=== PATIENT | male | born 1945 | race African-American/Black ===

== ENCOUNTER 2018-06-17 07:33 | Inpatient (IN) ==
[2018-06-17] MEDS ORDERED: DEXTROSE 50% 25 GM/50 ML SYRINGE IV PRN (09:17)
[2018-06-17] MEDS ORDERED: GLUCAGON 1 MG VIAL IM PRN (09:17)
[2018-06-17] MEDS ORDERED: ASPIRIN CHEW 81 MG TABLET PO ONE (12:00)
[2018-06-17 12:39] LABS: Basophils % 0.3 % (0.0-0.8); Eosinophils # 0.2 10*3/uL (0.0-0.87); Eosinophils % 3.7 % (0.00-10.9); Hemoglobin 12.2 GM/DL (14.0-18.0); Immature Granulocytes % 0.2 %; Immature Granulocytes Absolute 0.01 #; Lymphocytes # 1.4 10*3/uL (1.4-4.0); Lymphocytes % 23.8 % (21.2-54.2); Mean Corpuscular Hemoglobin 28 PG (27-34); Mean Corpuscular Volume 83.3 FL (87-102); Mean Platelet Volume 8.9 FL (9.6-12.0); Monocytes # 0.7 10*3/uL (0.11-0.8); Monocytes % 12.2 % (1.7-12.7); Neutrophils # 3.6 10*3/uL (1.4-7.4); Neutrophils % 59.8 % (38.7-73.9); Platelet Count 191 T/CUMM (130-400); Red Blood Count 4.44 MC/CUMM (3.8-5.5); Red Cell Distribution Width 13.2 % (9.3-17.3)
[2018-06-17 13:04] LABS: Bilirubin,Total 0.4 MG/DL (0.2-1.0); Calcium 9.3 MG/DL (8.5-10.1); Osmolality,Calculated 277.7 MOS/KG (273-304); Total Protein 7.4 G/DL (6.4-8.3)
[2018-06-17] MEDS: CHLORHEXIDINE 4% SOLN 118 ML BOTTLE TOP SCH ×2 (15:28→21:46)
[2018-06-17] MEDS ORDERED: TERAZOSIN 1 MG CAPSULE PO SCH (21:00)
[2018-06-17] MEDS ORDERED: ATORVASTATIN 40 MG TABLET PO SCH (21:00)
[2018-06-17] MEDS: LUBIPROSTONE 24 MCG CAPSULE PO SCH (21:29)
[2018-06-17] MEDS: CHLORHEXIDINE 0.12% ORAL RINSE 60 ML BOTTLE SWISH/SPIT SCH (21:30)
[2018-06-18 04:44] LABS: Allen Test Positive
[2018-06-18 04:45] LABS: ABG HCO3 26.1 MMOL/L (20-26); ABG Oxygen Saturation 96.6 % (95-100); ABG PCO2 41.2 MM HG (35-48); ABG PH 7.419 (7.35-7.45); ABG TCO2 23.4 MMOL/L (23-27)
[2018-06-18] MEDS ORDERED: PAPAVERINE 60 MG/2 ML VIAL ONE (04:50)
[2018-06-18] MEDS ORDERED: VANCOMYCIN 1,000 MG VIAL ONE (04:51)
[2018-06-18] MEDS ORDERED: CEFUROXIME INJ 1,500 MG in SYRINGE 1 EACH IV ONE (05:00)
[2018-06-18] MEDS ORDERED: METOPROLOL SUCCINATE XL 50 MG TABLET PO SCH (05:30)
[2018-06-18] MEDS ORDERED: amLODIPine 10 MG TABLET PO SCH (05:30)
[2018-06-18] MEDS ORDERED: FAMOTIDINE 20 MG TABLET PO ONE (06:00)
[2018-06-18] MEDS ORDERED: DIAZEPAM 5 MG TABLET PO ONE (06:00)
[2018-06-18] MEDS ORDERED: SUFentanil 250 MCG/5 ML AMP ONE (06:08)
[2018-06-18] MEDS ORDERED: MIDAZOLAM 10 MG/2 ML VIAL ONE (06:08)
[2018-06-18] MEDS ORDERED: NITROGLYCERIN DRIP 50 MG/250 ML BOTTLE IV ONE (06:08)
[2018-06-18] MEDS ORDERED: SUFentanil 50 MCG/ML AMP ONE (06:08)
[2018-06-18] MEDS ORDERED: EPINEPHrine 1 MG/ML VIAL ONE (06:09)
[2018-06-18] MEDS ORDERED: ePHEDrine 50 MG/ML AMP ONE (06:09)
[2018-06-18] MEDS ORDERED: CALCIUM CHLORIDE 1,000 MG/10 ML SYRINGE IV ONE (07:26)
[2018-06-18] MEDS ORDERED: NITROPRUSSIDE 50 MG/2 ML VIAL ONE (07:26)
[2018-06-18] MEDS ORDERED: PHENYLEPHRINE DRIP 40 MG/250 ML PREMIX IV ONE (07:26)
[2018-06-18] MEDS ORDERED: POTASSIUM CHLORIDE RIDER 100 ML IV ONE (07:26)
[2018-06-18 07:37] LABS: ABG Base Excess 1.6 MMOL/L (-2.5-2.5); ABG HCO3 25.9 MMOL/L (20-26); ABG Oxygen Saturation 99.9 % (95-100); ABG PCO2 36.4 MM HG (35-48); ABG TCO2 22.4 MMOL/L (23-27); Glucose Heart Surgery 95 MG/DL (74-106); Hematocrit Heart Surgery 36.4 PERCENT (42-52); Hemoglobin Heart Surgery 11.8 G/DL (14.0-18.0); Ionized Calcium Arterial 1.19 MMOL/L (1.21-1.46); PCO2 Patient Temp Arterial 36.4 MMHG; Patient Temperature 37 CELCIUS; Potassium Heart/CVR 3.7 MMOL/L (3.5-5.1); Sodium Heart/CVR 137 MMOL/L (135-145)
[2018-06-18] MEDS ORDERED: ALBUMIN 5% 12.5 GM/250 ML VIAL IV ONE (07:43)
[2018-06-18] MEDS ORDERED: hydroCHLOROthiazide 12.5 MG CAPSULE PO SCH (09:00)
[2018-06-18 09:04] LABS: Apearance,Urine CLEAR (Clear); Bilirubin,Urine Negative (Negative); Blood, Urine Negative (Negative); Glucose,Urine (UA) Negative (Negative); Hyaline Casts,Urine 1 /LPF (0-3); Ketones,Urine Negative (Negative); Mucus,Urine Occasional /LPF (Occasional); Nitrite,Urine Negative (Negative); Protein,Urine Negative; RBC,Urine <1 /HPF (0-4); Urine Color Yellow (Yellow); Urine Specific Gravity 1.018 (1.001-1.035); WBC,Urine 1 /HPF (0-6)
[2018-06-18 09:22] LABS: Hematocrit Heart Surgery 22.7 PERCENT (42-52); Hemoglobin Heart Surgery 7.3 G/DL (14.0-18.0); PH Patient Temp Venous 7.437; PO2 Patient Temp Venous 42.6 MM HG; Potassium Heart/CVR 4.1 MMOL/L (3.5-5.1); VBG Base Excess 1.1 MEQ/L (0-4); VBG HCO3 25.2 MEQ/L (24-28); VBG Oxygen Saturation 83.5 %; VBG PCO2 40.8 MMHG (41-51); VBG PH 7.408; VBG PO2 48.8 MMHG (17-40)
[2018-06-18 09:51] LABS: Hematocrit Heart Surgery 24.1 PERCENT (42-52); Hemoglobin Heart Surgery 7.7 G/DL (14.0-18.0); PCO2 Patient Temp Venous 30.6 MM HG; PH Patient Temp Venous 7.513; PO2 Patient Temp Venous 37.4 MM HG; Potassium Heart/CVR 3.9 MMOL/L (3.5-5.1); VBG Oxygen Saturation 83.2 %; VBG PCO2 35.3 MMHG (41-51); VBG PH 7.468; VBG PO2 45.9 MMHG (17-40)
[2018-06-18 10:23] LABS: Hematocrit Heart Surgery 24.6 PERCENT (42-52); Hemoglobin Heart Surgery 7.9 G/DL (14.0-18.0); PCO2 Patient Temp Venous 33.5 MM HG; PH Patient Temp Venous 7.469; Potassium Heart/CVR 4.7 MMOL/L (3.5-5.1); VBG Base Excess 0.9 MEQ/L (0-4); VBG Oxygen Saturation 75.5 %; VBG PCO2 33.5 MMHG (41-51); VBG PH 7.469
[2018-06-18] MEDS ORDERED: MANNITOL 100 GM/500 ML BAG IV ONE (10:48)
[2018-06-18] MEDS ORDERED: PROTAMINE SULFATE 250 MG/25 ML VIAL IV ONE ×2 (10:49→13:00)
[2018-06-18] MEDS ORDERED: FUROSEMIDE 20 MG/2 ML VIAL ONE (10:49)
[2018-06-18] MEDS ORDERED: SODIUM BICARBONATE 50 MEQ/50 ML SYRINGE IV ONE ×2 (10:49→13:00)
[2018-06-18] MEDS ORDERED: ALBUMIN 25% 25 GM/100 ML VIAL IV ONE (10:49)
[2018-06-18] MEDS ORDERED: HEPARIN 10,000 UNIT/10 ML VIAL ONE ×2 (10:49→13:00)
[2018-06-18] MEDS ORDERED: MAGNESIUM SULFATE 10 GM/20 ML VIAL IV ONE (10:49)
[2018-06-18] MEDS ORDERED: DEXTROSE 5% KCL 20 MEQ 20 MEQ/1,000 ML BAG IV ONE (10:49)
[2018-06-18] MEDS ORDERED: methylPREDNISolone SOD SUC 1,000 MG/8 ML VIAL ONE (10:49)
[2018-06-18] MEDS ORDERED: PROTAMINE SULFATE 50 MG/5 ML VIAL IV ONE ×4 (10:50→13:49)
[2018-06-18] MEDS ORDERED: POTASSIUM CHLORIDE 20 MEQ/10 ML VIAL ONE ×2 (10:50→13:00)
[2018-06-18 10:59] LABS: ABG Base Excess -0.7 MMOL/L (-2.5-2.5); ABG HCO3 23.8 MMOL/L (20-26); ABG Oxygen Saturation 99.9 % (95-100); ABG PCO2 32.8 MM HG (35-48); ABG TCO2 21.1 MMOL/L (23-27); Glucose Heart Surgery 163 MG/DL (74-106); Hematocrit Heart Surgery 26.1 PERCENT (42-52); Hemoglobin Heart Surgery 8.4 G/DL (14.0-18.0); Ionized Calcium Arterial 1.18 MMOL/L (1.21-1.46); PCO2 Patient Temp Arterial 32.8 MMHG; Patient Temperature 37 CELCIUS; Potassium Heart/CVR 3.9 MMOL/L (3.5-5.1); Sodium Heart/CVR 132 MMOL/L (135-145)
[2018-06-18 11:19] LABS: Hemoglobin Heart Surgery 8.7 G/DL (14.0-18.0); PCO2 Patient Temp Venous 40.9 MM HG; PH Patient Temp Venous 7.359; PO2 Patient Temp Venous 48.8 MM HG; Potassium Heart/CVR 3.3 MMOL/L (3.5-5.1); VBG Base Excess -2.7 MEQ/L (0-4); VBG HCO3 22.5 MEQ/L (24-28); VBG PCO2 40.9 MMHG (41-51); VBG PH 7.359; VBG PO2 48.8 MMHG (17-40)
[2018-06-18] MEDS ORDERED: diphenhydrAMINE 50 MG/1 ML VIAL ONE (11:53)
[2018-06-18] MEDS ORDERED: FAMOTIDINE 20 MG/2 ML VIAL IV ONE (11:54)
[2018-06-18 12:27] LABS: ABG Base Excess 0.3 MMOL/L (-2.5-2.5); ABG HCO3 24.1 MMOL/L (20-26); ABG Oxygen Saturation 98.6 % (95-100); ABG PCO2 35.1 MM HG (35-48); ABG PH 7.454 (7.35-7.45); ABG TCO2 25.1 MMOL/L (23-27); Glucose Heart Surgery 184 MG/DL (74-106); Hemoglobin Heart Surgery 8.9 G/DL (14.0-18.0); Ionized Calcium Arterial 1.12 MMOL/L (1.21-1.46); PCO2 Patient Temp Arterial 35.1 MMHG; PH Patient Temp Arterial 7.454; Patient Temperature 37 CELCIUS; Potassium Heart/CVR 3.5 MMOL/L (3.5-5.1); Sodium Heart/CVR 135 MMOL/L (135-145)
[2018-06-18] MEDS ORDERED: DOBUTamine 500 MG/250 ML PREMIX IV ONE ×2 (13:01→14:01)
[2018-06-18] MEDS ORDERED: MIDAZOLAM 10 MG/2 ML VIAL IV PRN (13:46)
[2018-06-18] MEDS ORDERED: MAGNESIUM SULF RIDER 4 GM in PREMIX 1 EACH IV PRN (13:46)
[2018-06-18] MEDS ORDERED: LACTATED RINGERS 250 ML IV PRN (13:46)
[2018-06-18] MEDS ORDERED: CALCIUM CHLORIDE 1,000 MG/10 ML SYRINGE IV PRN (13:46)
[2018-06-18] MEDS ORDERED: INSULIN REGULAR 100 UNIT/ML IV ONE (13:46)
[2018-06-18] MEDS ORDERED: DEXTROSE 50% 25 GM/50 ML SYRINGE IV PRN ×2 (13:46)
[2018-06-18] MEDS ORDERED: ACETAMINOPHEN 650 MG SUPP RECTAL PRN (13:46)
[2018-06-18] MEDS ORDERED: ONDANSETRON 4 MG/2 ML VIAL IV PRN (13:46)
[2018-06-18] MEDS ORDERED: VECURONIUM 10 MG VIAL IV PRN ×2 (13:46)
[2018-06-18] MEDS ORDERED: NITROPRUSSIDE 100 MG in DEXTROSE 5% 250 ML IV PRN (13:46)
[2018-06-18] MEDS ORDERED: INSULIN REGULAR 100 UNIT/ML IV PRN (13:46)
[2018-06-18] MEDS ORDERED: MAGNESIUM SULF RIDER 2 GM in PREMIX 1 EACH IV PRN (13:46)
[2018-06-18] MEDS: PHENYLEPHRINE DRIP 40 MG/250 ML PREMIX IV PRN (13:59)
[2018-06-18] MEDS ORDERED: INSULIN REGULAR DRIP 100 ML IV SCH (14:00)
[2018-06-18] MEDS ORDERED: DOBUTamine 500 MG/250 ML PREMIX IV SCH (14:00)
[2018-06-18] MEDS ORDERED: SODIUM CHLORIDE 0.45% 1,000 ML IV SCH ×2 (14:00)
[2018-06-18] MEDS ORDERED: PHENYLEPHRINE DRIP 20 MG/250 ML PREMIX IV ONE (14:01)
[2018-06-18] MEDS ORDERED: CALCIUM CHLORIDE 1,000 MG/10 ML VIAL IV ONE (14:01)
[2018-06-18] MEDS ORDERED: ETOMIDATE 40 MG/20 ML VIAL IV ONE (14:02)
[2018-06-18] MEDS ORDERED: SODIUM CHLORIDE 0.9% 2,000 ML IV ONE (14:02)
[2018-06-18] MEDS ORDERED: SODIUM CHLORIDE 0.9% 250 ML IV ONE (14:02)
[2018-06-18] MEDS ORDERED: SEVOFLURANE 1 UNIT/15 MINUTE INH ONE (14:02)
[2018-06-18] MEDS ORDERED: AMIODARONE 150 MG/3 ML VIAL ONE (14:02)
[2018-06-18] MEDS ORDERED: SODIUM CHLORIDE 0.9% 100 ML IV ONE (14:02)
[2018-06-18] MEDS ORDERED: LACTATED RINGERS 1,000 ML IV ONE (14:02)
[2018-06-18] MEDS ORDERED: VECURONIUM 10 MG VIAL IV ONE (14:02)
[2018-06-18] MEDS ORDERED: methylPREDNISolone SOD SUC 125 MG/2 ML VIAL ONE (14:02)
[2018-06-18] MEDS ORDERED: HEPARIN/NACL 0.9% 2 UNITS/ML 500 ML IV ONE (14:02)
[2018-06-18] MEDS ORDERED: PHENYLEPHRINE 10 MG/1 ML VIAL IV ONE (14:02)
[2018-06-18 14:08] LABS: ABG Base Excess 0.2 MMOL/L (-2.5-2.5); ABG HCO3 24.4 MMOL/L (20-26); ABG Oxygen Saturation 92.2 % (95-100); ABG PCO2 37.1 MM HG (35-48); ABG PH 7.435 (7.35-7.45); ABG PO2 68.1 MM HG (80-95); ABG TCO2 25.5 MMOL/L (23-27); Glucose Heart Surgery 194 MG/DL (74-106); Hemoglobin Heart Surgery 9.1 G/DL (14.0-18.0); Potassium Heart/CVR 3.8 MMOL/L (3.5-5.1)
[2018-06-18 14:09] LABS: Basophils % 0.1 % (0.0-0.8); Eosinophils % 0.3 % (0.00-10.9); Hematocrit 25.2 VOL% (42.0-52.0); Hemoglobin 8.2 GM/DL (14.0-18.0); Immature Granulocytes Absolute 0.12 #; Lymphocytes # 0.6 10*3/uL (1.4-4.0); Lymphocytes % 4.9 % (21.2-54.2); Mean Corpuscular HGB Conc 32.5 GM/DL (32-36); Mean Corpuscular Hemoglobin 28 PG (27-34); Mean Corpuscular Volume 85.1 FL (87-102); Mean Platelet Volume 9.9 FL (9.6-12.0); Monocytes % 8.4 % (1.7-12.7); Neutrophils # 9.8 10*3/uL (1.4-7.4); Neutrophils % 85.3 % (38.7-73.9); Platelet Count 155 T/CUMM (130-400); Red Blood Count 2.96 MC/CUMM (3.8-5.5); Red Cell Distribution Width 13.5 % (9.3-17.3); White Blood Count 11.5 T/CUMM (4-12)
[2018-06-18] MEDS ORDERED: AMINOCAPROIC ACID 5,000 MG/20 ML VIAL IV ONE (14:09)
[2018-06-18] MEDS: POTASSIUM CHLORIDE RIDER 20 MEQ in PREMIX 1 EACH IV PRN ×4 (14:15→22:35)
[2018-06-18 14:18] LABS: INR 1.2; PT Patient Result 13.5 SECS; Partial Thromboplastin Time 27.1 SECS (0-40)
[2018-06-18 14:27] LABS: Albumin 2.9 G/DL (3.4-5.0); Bilirubin,Total 1.5 MG/DL (0.2-1.0); Calcium 9.7 MG/DL (8.5-10.1); Osmolality,Calculated 288.3 MOS/KG (273-304); Potassium 3.9 MMOL/L (3.5-5.1); Total Protein 5.8 G/DL (6.4-8.3)
[2018-06-18 14:28] LABS: CKMB % 3.5 %
[2018-06-18 14:30] LABS: Lymphocytes 2 % (20-55); Platelet Estimate Normal; Segmented Neutrophils 96 % (50-85); Total Cells Counted 100
[2018-06-18 14:31] LABS: Hypochromasia Slight; Microcytosis Slight
[2018-06-18] MEDS: POTASSIUM CHLORIDE RIDER 10 MEQ in PREMIX 1 EACH IV PRN ×3 (14:45→23:42)
[2018-06-18] MEDS: MIDAZOLAM 2 MG/2 ML VIAL IV PRN ×3 (15:18→19:35)
[2018-06-18] MEDS: LACTATED RINGERS 1,000 ML IV PRN ×3 (15:20→17:17)
[2018-06-18] MEDS: ALBUMIN 5% 12.5 GM in PREMIX 1 EACH IV PRN ×2 (15:22→16:25)
[2018-06-18 15:48] LABS: ABG Base Excess -1.7 MMOL/L (-2.5-2.5); ABG HCO3 22.7 MMOL/L (20-26); ABG Oxygen Saturation 97.3 % (95-100); ABG PCO2 37.3 MM HG (35-48); ABG PH 7.402 (7.35-7.45); ABG PO2 108.8 MM HG (80-95); ABG TCO2 23.8 MMOL/L (23-27); Glucose Heart Surgery 209 MG/DL (74-106); Hemoglobin Heart Surgery 10.9 G/DL (14.0-18.0); Potassium Heart/CVR 4.5 MMOL/L (3.5-5.1)
[2018-06-18] MEDS: SODIUM CHLORIDE 0.9% 1,000 ML IV SCH (16:52)
[2018-06-18] MEDS: LUBIPROSTONE 24 MCG CAPSULE PO SCH (16:53)
[2018-06-18] MEDS: CHLORHEXIDINE 4% SOLN 118 ML BOTTLE TOP SCH (16:53)
[2018-06-18] MEDS: CHLORHEXIDINE 0.12% ORAL RINSE 60 ML BOTTLE SWISH/SPIT SCH ×2 (16:53→20:41)
[2018-06-18 17:05] LABS: ABG Base Excess -2.5 MMOL/L (-2.5-2.5); ABG HCO3 22.3 MMOL/L (20-26); ABG Oxygen Saturation 97.2 % (95-100); ABG PCO2 39.4 MM HG (35-48); ABG PH 7.367 (7.35-7.45); ABG PO2 97.6 MM HG (80-95); ABG TCO2 20.1 MMOL/L (23-27); Glucose Heart Surgery 217 MG/DL (74-106); Hematocrit Heart Surgery 37.2 PERCENT (42-52); Hemoglobin Heart Surgery 12.1 G/DL (14.0-18.0); Potassium Heart/CVR 4.1 MMOL/L (3.5-5.1)
[2018-06-18] MEDS: MINERAL OIL/PETROLATUM OPH OINT 3.5 GM TUBE BOTH EYES SCH ×2 (17:08→21:50)
[2018-06-18 19:44] LABS: ABG Oxygen Saturation 97.3 % (95-100); ABG PCO2 36.2 MM HG (35-48); ABG PH 7.439 (7.35-7.45); ABG PO2 113.3 MM HG (80-95); ABG TCO2 25.1 MMOL/L (23-27); Glucose Heart Surgery 165 MG/DL (74-106); Hemoglobin Heart Surgery 9.6 G/DL (14.0-18.0); Potassium Heart/CVR 3.5 MMOL/L (3.5-5.1)
[2018-06-18] MEDS: MORPHINE 4 MG/1 ML VIAL IV PRN (20:40)
[2018-06-18] MEDS: CEFUROXIME INJ 1,500 MG in SYRINGE 1 EACH IV SCH (20:42)
[2018-06-18 21:19] LABS: ABG Base Excess 0.3 MMOL/L (-2.5-2.5); ABG HCO3 25.1 MMOL/L (20-26); ABG Oxygen Saturation 97.4 % (95-100); ABG PCO2 41.7 MM HG (35-48); ABG PH 7.398 (7.35-7.45); ABG PO2 112.8 MM HG (80-95); ABG TCO2 26.4 MMOL/L (23-27); Glucose Heart Surgery 146 MG/DL (74-106); Hemoglobin Heart Surgery 9.8 G/DL (14.0-18.0); Potassium Heart/CVR 3.9 MMOL/L (3.5-5.1)
[2018-06-18 21:54] LABS: CKMB % 4.4 %
[2018-06-18 22:00] LABS: Troponin I 10.4 NG/ML (0.00-0.045)
[2018-06-18] MEDS: MORPHINE 10 MG/1 ML VIAL IV PRN ×2 (22:01→23:18)
[2018-06-18 22:10] LABS: ABG Base Excess 1.8 MMOL/L (-2.5-2.5); ABG HCO3 26.1 MMOL/L (20-26); ABG Oxygen Saturation 97.2 % (95-100); ABG PCO2 39.6 MM HG (35-48); ABG PH 7.437 (7.35-7.45); ABG PO2 108.1 MM HG (80-95); ABG TCO2 27.3 MMOL/L (23-27); Glucose Heart Surgery 142 MG/DL (74-106); Hemoglobin Heart Surgery 9.7 G/DL (14.0-18.0); Potassium Heart/CVR 3.8 MMOL/L (3.5-5.1)
[2018-06-18 22:41] LABS: ABG Base Excess 0.6 MMOL/L (-2.5-2.5); ABG Oxygen Saturation 97.8 % (95-100); ABG PCO2 40.6 MM HG (35-48); ABG PH 7.404 (7.35-7.45); ABG TCO2 23.2 MMOL/L (23-27); Glucose Heart Surgery 151 MG/DL (74-106); Hematocrit Heart Surgery 29.4 PERCENT (42-52); Hemoglobin Heart Surgery 9.5 G/DL (14.0-18.0); Potassium Heart/CVR 3.9 MMOL/L (3.5-5.1)
[2018-06-18 23:07] LABS: ABG Base Excess 1.2 MMOL/L (-2.5-2.5); ABG HCO3 25.3 MMOL/L (20-26); ABG PCO2 42.9 MM HG (35-48); ABG PH 7.394 (7.35-7.45); ABG PO2 60.4 MM HG (80-95); ABG TCO2 24.1 MMOL/L (23-27); Glucose Heart Surgery 146 MG/DL (74-106); Hemoglobin Heart Surgery 9.4 G/DL (14.0-18.0); Potassium Heart/CVR 3.7 MMOL/L (3.5-5.1)
[2018-06-19] MEDS: LACTATED RINGERS 1,000 ML IV PRN (01:00)
[2018-06-19 03:14] LABS: ABG Base Excess 2.1 MMOL/L (-2.5-2.5); ABG HCO3 26.3 MMOL/L (20-26); ABG Oxygen Saturation 95.1 % (95-100); ABG PCO2 38.7 MM HG (35-48); ABG PO2 72.5 MM HG (80-95); ABG TCO2 24.3 MMOL/L (23-27); Glucose Heart Surgery 119 MG/DL (74-106); Hematocrit Heart Surgery 26.6 PERCENT (42-52); Hemoglobin Heart Surgery 8.6 G/DL (14.0-18.0); Potassium Heart/CVR 4.1 MMOL/L (3.5-5.1)
[2018-06-19 03:28] LABS: Basophils % 0.1 % (0.0-0.8); Hematocrit 26.3 VOL% (42.0-52.0); Hemoglobin 8.9 GM/DL (14.0-18.0); Immature Granulocytes % 0.4 %; Immature Granulocytes Absolute 0.05 #; Lymphocytes # 0.5 10*3/uL (1.4-4.0); Lymphocytes % 4.3 % (21.2-54.2); Mean Corpuscular HGB Conc 33.8 GM/DL (32-36); Mean Corpuscular Hemoglobin 29 PG (27-34); Mean Corpuscular Volume 86.8 FL (87-102); Mean Platelet Volume 9.8 FL (9.6-12.0); Monocytes # 0.9 10*3/uL (0.11-0.8); Monocytes % 7.5 % (1.7-12.7); Neutrophils % 87.7 % (38.7-73.9); Platelet Count 147 T/CUMM (130-400); Red Blood Count 3.03 MC/CUMM (3.8-5.5); Red Cell Distribution Width 14.2 % (9.3-17.3); White Blood Count 11.4 T/CUMM (4-12)
[2018-06-19] MEDS: MORPHINE 10 MG/1 ML VIAL IV PRN (03:47)
[2018-06-19 03:53] LABS: Bilirubin,Direct 0.43 MG/DL (0.0-0.20); Calcium 8.7 MG/DL (8.5-10.1); Osmolality,Calculated 285.1 MOS/KG (273-304); Potassium 4.1 MMOL/L (3.5-5.1)
[2018-06-19 03:54] LABS: CKMB % 5.5 %
[2018-06-19 03:59] LABS: Troponin I 18.9 NG/ML (0.00-0.045)
[2018-06-19 04:13] LABS: Hypochromasia Slight; Lymphocytes 2 % (20-55); Platelet Estimate Decreased; Segmented Neutrophils 94 % (50-85); Total Cells Counted 100
[2018-06-19] MEDS: PHENYLEPHRINE DRIP 40 MG/250 ML PREMIX IV PRN (05:21)
[2018-06-19 05:42] LABS: ABG Base Excess 1.1 MMOL/L (-2.5-2.5); ABG HCO3 25.4 MMOL/L (20-26); ABG PCO2 43.5 MM HG (35-48); ABG PO2 75.5 MM HG (80-95); Glucose Heart Surgery 139 MG/DL (74-106)
[2018-06-19] MEDS: POTASSIUM CHLORIDE RIDER 20 MEQ in PREMIX 1 EACH IV PRN (05:50)
[2018-06-19] MEDS: MORPHINE 4 MG/1 ML VIAL IV PRN ×4 (07:21→20:48)
[2018-06-19] MEDS: CHLORHEXIDINE 0.12% ORAL RINSE 60 ML BOTTLE SWISH/SPIT SCH ×2 (08:14→20:49)
[2018-06-19] MEDS ORDERED: INFLUENZA VIRUS VACCINE 0.5 ML SYRINGE IM ONE (09:00)
[2018-06-19] MEDS ORDERED: DEXTROSE 50% 25 GM/50 ML VIAL IV PRN (09:33)
[2018-06-19] MEDS ORDERED: GLUCAGON 1 MG VIAL IM PRN (09:33)
[2018-06-19 09:42] LABS: ABG Base Excess 0.8 MMOL/L (-2.5-2.5); ABG HCO3 25.1 MMOL/L (20-26); ABG Oxygen Saturation 96.4 % (95-100); ABG PCO2 40.7 MM HG (35-48); ABG PH 7.406 (7.35-7.45); ABG PO2 83.9 MM HG (80-95); ABG TCO2 23.3 MMOL/L (23-27); Glucose Heart Surgery 163 MG/DL (74-106); Hematocrit Heart Surgery 30.8 PERCENT (42-52); Hemoglobin Heart Surgery 9.9 G/DL (14.0-18.0); Potassium Heart/CVR 4.3 MMOL/L (3.5-5.1)
[2018-06-19] MEDS: MINERAL OIL/PETROLATUM OPH OINT 3.5 GM TUBE BOTH EYES SCH ×2 (09:49→20:49)
[2018-06-19] MEDS: CEFUROXIME INJ 1,500 MG in SYRINGE 1 EACH IV SCH ×2 (09:50→20:47)
[2018-06-19] MEDS: INSULIN REGULAR 100 UNIT/ML SUBCUT SCH ×5 (09:51→21:28)
[2018-06-19 11:34] LABS: ABG HCO3 25.2 MMOL/L (20-26); ABG Oxygen Saturation 89.9 % (95-100); ABG PCO2 38.5 MM HG (35-48); ABG PH 7.434 (7.35-7.45); ABG PO2 62.5 MM HG (80-95); ABG TCO2 26.4 MMOL/L (23-27); Glucose Heart Surgery 175 MG/DL (74-106); Hemoglobin Heart Surgery 10.4 G/DL (14.0-18.0); Potassium Heart/CVR 4.2 MMOL/L (3.5-5.1)
[2018-06-19] MEDS: SODIUM CHLOR 0.45% KCL 20 MEQ 20 MEQ/1,000 ML BAG IV SCH (11:48)
[2018-06-19] MEDS ORDERED: FUROSEMIDE 40 MG/4 ML VIAL IV ONE (12:54)
[2018-06-19] MEDS: ALBUTEROL/IPRATROPIUM 3 ML NEB RESP TX SCH ×2 (13:02→19:44)
[2018-06-19] MEDS: amLODIPine 10 MG TABLET PO SCH (13:06)
[2018-06-19 16:21] LABS: CKMB % 3.8 %
[2018-06-19 16:23] LABS: Troponin I 13.1 NG/ML (0.00-0.045)
[2018-06-20] MEDS ORDERED: FUROSEMIDE 40 MG/4 ML VIAL IV ONE (00:01)
[2018-06-20] MEDS: ALBUTEROL/IPRATROPIUM 3 ML NEB RESP TX SCH ×5 (01:24→19:50)
[2018-06-20] MEDS: INSULIN REGULAR 100 UNIT/ML SUBCUT SCH ×6 (01:39→20:14)
[2018-06-20] MEDS: MORPHINE 4 MG/1 ML VIAL IV PRN (03:25)
[2018-06-20 03:46] LABS: ABG Base Excess 4.6 MMOL/L (-2.5-2.5); ABG HCO3 27.7 MMOL/L (20-26); ABG Oxygen Saturation 91.6 % (95-100); ABG PCO2 35.3 MM HG (35-48); ABG PH 7.513 (7.35-7.45); ABG PO2 64.2 MM HG (80-95); ABG TCO2 28.8 MMOL/L (23-27)
[2018-06-20 04:00] LABS: Hematocrit 26.9 VOL% (42.0-52.0); Hemoglobin 9.2 GM/DL (14.0-18.0); Immature Granulocytes % 0.7 %; Immature Granulocytes Absolute 0.09 #; Lymphocytes # 0.7 10*3/uL (1.4-4.0); Lymphocytes % 4.8 % (21.2-54.2); Mean Corpuscular HGB Conc 34.2 GM/DL (32-36); Mean Corpuscular Hemoglobin 30 PG (27-34); Mean Corpuscular Volume 86.8 FL (87-102); Mean Platelet Volume 10.1 FL (9.6-12.0); Monocytes # 1.3 10*3/uL (0.11-0.8); Monocytes % 9.7 % (1.7-12.7); Neutrophils # 11.6 10*3/uL (1.4-7.4); Neutrophils % 84.8 % (38.7-73.9); Platelet Count 126 T/CUMM (130-400); Red Cell Distribution Width 14.6 % (9.3-17.3); White Blood Count 13.7 T/CUMM (4-12)
[2018-06-20 04:28] LABS: Albumin 2.7 G/DL (3.4-5.0); Bilirubin,Direct 0.22 MG/DL (0.0-0.20); Bilirubin,Total 0.6 MG/DL (0.2-1.0); Calcium 8.3 MG/DL (8.5-10.1); Osmolality,Calculated 284.5 MOS/KG (273-304); Potassium 4.1 MMOL/L (3.5-5.1); Total Protein 6.2 G/DL (6.4-8.3)
[2018-06-20 04:43] LABS: Eosinophils 1 % (0-10); Hypochromasia Slight; Lymphocytes 7 % (20-55); Platelet Estimate Decreased; Polychromasia Few; Segmented Neutrophils 91 % (50-85); Total Cells Counted 100
[2018-06-20] MEDS: POTASSIUM CHLORIDE RIDER 20 MEQ in PREMIX 1 EACH IV PRN (06:13)
[2018-06-20] MEDS: MORPHINE 10 MG/1 ML VIAL IV PRN (08:46)
[2018-06-20] MEDS ORDERED: HYDROmorphone 2 MG/1 ML VIAL ONE (09:43)
[2018-06-20] MEDS: HYDROmorphone 2 MG/1 ML VIAL IV PRN ×3 (09:56→23:58)
[2018-06-20] MEDS: MINERAL OIL/PETROLATUM OPH OINT 3.5 GM TUBE BOTH EYES SCH (10:25)
[2018-06-20] MEDS: CHLORHEXIDINE 0.12% ORAL RINSE 60 ML BOTTLE SWISH/SPIT SCH ×2 (10:25→20:14)
[2018-06-20] MEDS: amLODIPine 10 MG TABLET PO SCH (13:18)
[2018-06-20 13:28] LABS: VBG HCO3 29.2 MEQ/L (24-28); VBG Oxygen Saturation 62.6 %; VBG PCO2 41.7 MMHG (41-51); VBG PH 7.463; VBG PO2 37.1 MMHG (17-40)
[2018-06-20] MEDS: SODIUM CHLOR 0.45% KCL 20 MEQ 20 MEQ/1,000 ML BAG IV SCH (17:54)
[2018-06-21] MEDS: ALBUTEROL/IPRATROPIUM 3 ML NEB RESP TX SCH ×4 (01:04→18:42)
[2018-06-21 04:00] LABS: Basophils % 0.1 % (0.0-0.8); Hematocrit 26.2 VOL% (42.0-52.0); Hemoglobin 8.5 GM/DL (14.0-18.0); Immature Granulocytes % 0.6 %; Immature Granulocytes Absolute 0.07 #; Lymphocytes # 0.8 10*3/uL (1.4-4.0); Lymphocytes % 6.8 % (21.2-54.2); Mean Corpuscular HGB Conc 32.4 GM/DL (32-36); Mean Corpuscular Hemoglobin 29 PG (27-34); Mean Corpuscular Volume 88.2 FL (87-102); Mean Platelet Volume 10.1 FL (9.6-12.0); Monocytes # 1.5 10*3/uL (0.11-0.8); Monocytes % 12.4 % (1.7-12.7); Neutrophils # 9.6 10*3/uL (1.4-7.4); Neutrophils % 80.1 % (38.7-73.9); Platelet Count 127 T/CUMM (130-400); Red Blood Count 2.97 MC/CUMM (3.8-5.5); Red Cell Distribution Width 14.2 % (9.3-17.3)
[2018-06-21 04:21] LABS: Albumin 2.6 G/DL (3.4-5.0); Bilirubin,Direct 0.2 MG/DL (0.0-0.20); Bilirubin,Total 0.7 MG/DL (0.2-1.0); Calcium 8.4 MG/DL (8.5-10.1); Osmolality,Calculated 281.8 MOS/KG (273-304); Potassium 4.2 MMOL/L (3.5-5.1); Total Protein 6.1 G/DL (6.4-8.3)
[2018-06-21 06:45] LABS: ABG Base Excess 4.2 MMOL/L (-2.5-2.5); ABG HCO3 28.1 MMOL/L (20-26); ABG Oxygen Saturation 93.2 % (95-100); ABG PCO2 38.9 MM HG (35-48); ABG PH 7.467 (7.35-7.45); ABG PO2 67.9 MM HG (80-95); ABG TCO2 25.8 MMOL/L (23-27); Allen Test Positive; Pt O2 Delivery Device Other
[2018-06-21] MEDS: HYDROmorphone 2 MG/1 ML VIAL IV PRN ×2 (08:08→15:20)
[2018-06-21] MEDS: INSULIN REGULAR 100 UNIT/ML SUBCUT SCH ×4 (09:51→21:24)
[2018-06-21] MEDS: amLODIPine 10 MG TABLET PO SCH (09:52)
[2018-06-21] MEDS: CHLORHEXIDINE 0.12% ORAL RINSE 60 ML BOTTLE SWISH/SPIT SCH ×2 (09:53→21:25)
[2018-06-22] MEDS: ALBUTEROL/IPRATROPIUM 3 ML NEB RESP TX SCH ×4 (00:29→19:29)
[2018-06-22] MEDS: HYDROmorphone 2 MG/1 ML VIAL IV PRN ×2 (03:20→22:56)
[2018-06-22 03:33] LABS: ABG Base Excess 4.2 MMOL/L (-2.5-2.5); ABG HCO3 28.1 MMOL/L (20-26); ABG Oxygen Saturation 92.9 % (95-100); ABG PCO2 41.7 MM HG (35-48); ABG PH 7.445 (7.35-7.45); ABG PO2 66.2 MM HG (80-95); ABG TCO2 26.4 MMOL/L (23-27); Allen Test Positive
[2018-06-22 05:19] LABS: Basophils % 0.1 % (0.0-0.8); Eosinophils # 0.2 10*3/uL (0.0-0.87); Eosinophils % 1.7 % (0.00-10.9); Hematocrit 26.9 VOL% (42.0-52.0); Hemoglobin 8.8 GM/DL (14.0-18.0); Immature Granulocytes % 0.4 %; Immature Granulocytes Absolute 0.04 #; Lymphocytes # 1.2 10*3/uL (1.4-4.0); Mean Corpuscular HGB Conc 32.7 GM/DL (32-36); Mean Corpuscular Hemoglobin 29 PG (27-34); Mean Corpuscular Volume 89.4 FL (87-102); Mean Platelet Volume 9.7 FL (9.6-12.0); Monocytes # 1.2 10*3/uL (0.11-0.8); Monocytes % 12.1 % (1.7-12.7); NRBC # 0.02 10*3/uL; Neutrophils # 7.5 10*3/uL (1.4-7.4); Neutrophils % 73.7 % (38.7-73.9); Platelet Count 146 T/CUMM (130-400); Red Blood Count 3.01 MC/CUMM (3.8-5.5); Red Cell Distribution Width 14.4 % (9.3-17.3); White Blood Count 10.2 T/CUMM (4-12)
[2018-06-22 05:46] LABS: Bilirubin,Direct 0.24 MG/DL (0.0-0.20); Calcium 8.1 MG/DL (8.5-10.1); Osmolality,Calculated 284.5 MOS/KG (273-304); Potassium 4.2 MMOL/L (3.5-5.1)
[2018-06-22] MEDS: INSULIN REGULAR 100 UNIT/ML SUBCUT SCH ×4 (09:58→20:34)
[2018-06-22] MEDS: amLODIPine 10 MG TABLET PO SCH (09:58)
[2018-06-22] MEDS: CHLORHEXIDINE 0.12% ORAL RINSE 60 ML BOTTLE SWISH/SPIT SCH ×2 (09:59→20:36)
[2018-06-22] MEDS ORDERED: MAGNESIUM SULF RIDER 4 GM in PREMIX 1 EACH IV PRN (10:17)
[2018-06-22] MEDS ORDERED: GLUCAGON 1 MG VIAL IM PRN (10:17)
[2018-06-22] MEDS ORDERED: ALUMINUM/MAGNES/SIMETH MAX STR 30 ML UDCUP PO PRN (10:17)
[2018-06-22] MEDS ORDERED: ZALEPLON 5 MG CAPSULE PO PRN (10:17)
[2018-06-22] MEDS ORDERED: MAGNESIUM HYDROXIDE SUSP 30 ML UDCUP PO PRN (10:17)
[2018-06-22] MEDS ORDERED: MAGNESIUM SULF RIDER 2 GM in PREMIX 1 EACH IV PRN (10:17)
[2018-06-22] MEDS ORDERED: DEXTROSE 50% 25 GM/50 ML SYRINGE IV PRN (10:17)
[2018-06-22] MEDS ORDERED: POTASSIUM CHLORIDE 20 MEQ TABLET PO PRN (10:17)
[2018-06-22] MEDS ORDERED: SODIUM CHLOR 0.45% KCL 20 MEQ 20 MEQ/1,000 ML BAG IV SCH (10:30)
[2018-06-22] MEDS: INSULIN GLARGINE 100 UNIT/ML SUBCUT SCH ×2 (12:16→20:34)
[2018-06-22] MEDS: oxyCODONE/ACETAMINOPHEN 5-325 MG TABLET PO PRN ×3 (12:31→21:50)
[2018-06-22] MEDS ORDERED: INSULIN REGULAR 100 UNIT/ML SUBCUT SCH (16:30)
[2018-06-22] MEDS: LUBIPROSTONE 24 MCG CAPSULE PO SCH (20:32)
[2018-06-22] MEDS: TERAZOSIN 1 MG CAPSULE PO SCH (20:32)
[2018-06-22] MEDS: LACTULOSE 20 GM/30 ML UDCUP PO PRN (20:33)
[2018-06-23] MEDS: ALBUTEROL/IPRATROPIUM 3 ML NEB RESP TX SCH ×4 (00:15→19:40)
[2018-06-23 05:40] LABS: Alanine Aminotransferase 27 U/L (16-61); Albumin 2.3 G/DL (3.4-5.0); Alkaline Phosphatase 60 U/L (45-117); Aspartate Amino Transferase 19 U/L (0-37); Basophils % 0.1 % (0.0-0.8); Bilirubin,Indirect 0.4 MG/DL (0.0-1.0); Blood Urea Nitrogen 19 MG/DL (7-18); Calcium 8.2 MG/DL (8.5-10.1); Eosinophils # 0.3 10*3/uL (0.0-0.87); Eosinophils % 3.5 % (0.00-10.9); Glucose 169 MG/DL (74-106); Hematocrit 26.5 VOL% (42.0-52.0); Hemoglobin 8.7 GM/DL (14.0-18.0); Immature Granulocytes % 0.5 %; Immature Granulocytes Absolute 0.04 #; Lymphocytes # 1.5 10*3/uL (1.4-4.0); Lymphocytes % 17.7 % (21.2-54.2); Mean Corpuscular HGB Conc 32.8 GM/DL (32-36); Mean Corpuscular Hemoglobin 30 PG (27-34); Mean Corpuscular Volume 89.8 FL (87-102); Mean Platelet Volume 9.2 FL (9.6-12.0); Monocytes # 0.9 10*3/uL (0.11-0.8); Monocytes % 10.6 % (1.7-12.7); Neutrophils # 5.8 10*3/uL (1.4-7.4); Neutrophils % 67.6 % (38.7-73.9); Osmolality,Calculated 284.4 MOS/KG (273-304); Platelet Count 178 T/CUMM (130-400); Potassium 3.8 MMOL/L (3.5-5.1); Red Blood Count 2.95 MC/CUMM (3.8-5.5); Red Cell Distribution Width 14.4 % (9.3-17.3); Sodium 140 MMOL/L (136-145); Total Protein 5.9 G/DL (6.4-8.3); White Blood Count 8.6 T/CUMM (4-12)
[2018-06-23] MEDS ORDERED: FUROSEMIDE 40 MG/4 ML VIAL IV ONE (06:00)
[2018-06-23] MEDS: INSULIN REGULAR 100 UNIT/ML SUBCUT SCH ×4 (08:19→20:20)
[2018-06-23] MEDS: VICTOZA SUBCUT SCH (08:19)
[2018-06-23] MEDS: INSULIN GLARGINE 100 UNIT/ML SUBCUT SCH ×2 (08:20→21:45)
[2018-06-23] MEDS: LACTULOSE 20 GM/30 ML UDCUP PO PRN (08:28)
[2018-06-23] MEDS: LUBIPROSTONE 24 MCG CAPSULE PO SCH ×2 (08:29→21:44)
[2018-06-23] MEDS: METOPROLOL SUCCINATE XL 50 MG TABLET PO SCH (08:29)
[2018-06-23] MEDS: LORATADINE 10 MG TABLET PO SCH (08:29)
[2018-06-23] MEDS: amLODIPine 10 MG TABLET PO SCH (08:29)
[2018-06-23] MEDS: FERROUS SULFATE 325 MG TABLET PO SCH (08:29)
[2018-06-23] MEDS: DOCUSATE SODIUM 100 MG CAPSULE PO SCH (08:29)
[2018-06-23] MEDS: oxyCODONE/ACETAMINOPHEN 5-325 MG TABLET PO PRN (08:30)
[2018-06-23] MEDS: PANTOPRAZOLE 40 MG TABLET PO SCH (08:30)
[2018-06-23] MEDS: ASPIRIN EC 325 MG TABLET PO SCH (08:31)
[2018-06-23] MEDS: ISOSORBIDE MONONITRATE 60 MG TABLET PO SCH (08:32)
[2018-06-23] MEDS: CHLORHEXIDINE 0.12% ORAL RINSE 60 ML BOTTLE SWISH/SPIT SCH ×2 (08:33→21:45)
[2018-06-23] MEDS: HYDROmorphone 2 MG/1 ML VIAL IV PRN ×3 (10:08→22:03)
[2018-06-23] MEDS: TERAZOSIN 1 MG CAPSULE PO SCH (21:45)
[2018-06-24] MEDS: ALBUTEROL/IPRATROPIUM 3 ML NEB RESP TX SCH ×4 (01:46→19:06)
[2018-06-24 04:29] LABS: Basophils % 0.1 % (0.0-0.8); Eosinophils # 0.3 10*3/uL (0.0-0.87); Eosinophils % 2.6 % (0.00-10.9); Hematocrit 26.6 VOL% (42.0-52.0); Hemoglobin 8.5 GM/DL (14.0-18.0); Immature Granulocytes % 0.9 %; Immature Granulocytes Absolute 0.09 #; Lymphocytes # 1.7 10*3/uL (1.4-4.0); Lymphocytes % 16.5 % (21.2-54.2); Mean Corpuscular Hemoglobin 29 PG (27-34); Mean Corpuscular Volume 91.1 FL (87-102); Mean Platelet Volume 9.3 FL (9.6-12.0); Monocytes # 0.8 10*3/uL (0.11-0.8); Monocytes % 7.4 % (1.7-12.7); Neutrophils # 7.6 10*3/uL (1.4-7.4); Neutrophils % 72.5 % (38.7-73.9); Platelet Count 184 T/CUMM (130-400); Red Blood Count 2.92 MC/CUMM (3.8-5.5); Red Cell Distribution Width 14.6 % (9.3-17.3); White Blood Count 10.5 T/CUMM (4-12)
[2018-06-24 04:56] LABS: Alanine Aminotransferase 23 U/L (16-61); Albumin 2.3 G/DL (3.4-5.0); Alkaline Phosphatase 61 U/L (45-117); Aspartate Amino Transferase 15 U/L (0-37); Bilirubin,Indirect 0.5 MG/DL (0.0-1.0); Blood Urea Nitrogen 20 MG/DL (7-18); Calcium 8.1 MG/DL (8.5-10.1); Glucose 137 MG/DL (74-106); Osmolality,Calculated 283.4 MOS/KG (273-304); Sodium 140 MMOL/L (136-145); Total Protein 5.9 G/DL (6.4-8.3)
[2018-06-24 05:06] LABS: Anisocytosis Slight; Platelet Estimate Normal
[2018-06-24] MEDS ORDERED: LIDOCAINE 2% 20 ML VIAL ONE (06:01)
[2018-06-24] MEDS ORDERED: LIDOCAINE 2%/EPI 20 ML VIAL MISC INJ ONE (06:05)
[2018-06-24] MEDS ORDERED: HYDROmorphone 2 MG/1 ML VIAL IV ONE (06:05)
[2018-06-24] MEDS ORDERED: LIDOCAINE 2% 20 ML VIAL MISC INJ ONE (06:27)
[2018-06-24] MEDS: LUBIPROSTONE 24 MCG CAPSULE PO SCH ×2 (10:02→22:09)
[2018-06-24] MEDS: ISOSORBIDE MONONITRATE 60 MG TABLET PO SCH (10:02)
[2018-06-24] MEDS: FERROUS SULFATE 325 MG TABLET PO SCH (10:02)
[2018-06-24] MEDS: DOCUSATE SODIUM 100 MG CAPSULE PO SCH (10:02)
[2018-06-24] MEDS: LORATADINE 10 MG TABLET PO SCH (10:03)
[2018-06-24] MEDS: PANTOPRAZOLE 40 MG TABLET PO SCH (10:03)
[2018-06-24] MEDS: amLODIPine 10 MG TABLET PO SCH (10:03)
[2018-06-24] MEDS: ASPIRIN EC 325 MG TABLET PO SCH (10:03)
[2018-06-24] MEDS: METOPROLOL SUCCINATE XL 50 MG TABLET PO SCH (10:03)
[2018-06-24] MEDS: CHLORHEXIDINE 0.12% ORAL RINSE 60 ML BOTTLE SWISH/SPIT SCH ×2 (10:04→22:48)
[2018-06-24] MEDS: INSULIN REGULAR 100 UNIT/ML SUBCUT SCH ×4 (10:05→22:48)
[2018-06-24] MEDS: INSULIN GLARGINE 100 UNIT/ML SUBCUT SCH ×2 (10:32→22:09)
[2018-06-24] MEDS: VICTOZA SUBCUT SCH (10:32)
[2018-06-24] MEDS: ONDANSETRON 4 MG/2 ML VIAL IV PRN (11:54)
[2018-06-24] MEDS: HYDROmorphone 2 MG/1 ML VIAL IV PRN ×2 (12:04→18:29)
[2018-06-24] MEDS: TERAZOSIN 1 MG CAPSULE PO SCH (22:09)
[2018-06-25] MEDS: ALBUTEROL/IPRATROPIUM 3 ML NEB RESP TX SCH ×4 (00:21→19:26)
[2018-06-25] MEDS: HYDROmorphone 2 MG/1 ML VIAL IV PRN ×4 (01:05→21:30)
[2018-06-25] MEDS: INSULIN REGULAR 100 UNIT/ML SUBCUT SCH ×4 (07:30→21:25)
[2018-06-25] MEDS: INSULIN GLARGINE 100 UNIT/ML SUBCUT SCH ×2 (08:31→21:28)
[2018-06-25] MEDS: VICTOZA SUBCUT SCH (08:31)
[2018-06-25] MEDS: FERROUS SULFATE 325 MG TABLET PO SCH (08:32)
[2018-06-25] MEDS: ISOSORBIDE MONONITRATE 60 MG TABLET PO SCH (08:32)
[2018-06-25] MEDS: LUBIPROSTONE 24 MCG CAPSULE PO SCH ×2 (08:32→21:27)
[2018-06-25] MEDS: amLODIPine 10 MG TABLET PO SCH (08:33)
[2018-06-25] MEDS: DOCUSATE SODIUM 100 MG CAPSULE PO SCH (08:33)
[2018-06-25] MEDS: ASPIRIN EC 325 MG TABLET PO SCH (08:33)
[2018-06-25] MEDS: METOPROLOL SUCCINATE XL 50 MG TABLET PO SCH (08:34)
[2018-06-25] MEDS: PANTOPRAZOLE 40 MG TABLET PO SCH (08:34)
[2018-06-25] MEDS: LORATADINE 10 MG TABLET PO SCH (08:34)
[2018-06-25] MEDS: CHLORHEXIDINE 0.12% ORAL RINSE 60 ML BOTTLE SWISH/SPIT SCH ×2 (08:35→21:25)
[2018-06-25] MEDS: ONDANSETRON 4 MG/2 ML VIAL IV PRN (09:36)
[2018-06-25] MEDS: TERAZOSIN 1 MG CAPSULE PO SCH (21:28)
[2018-06-26] MEDS: ALBUTEROL/IPRATROPIUM 3 ML NEB RESP TX SCH ×4 (02:03→19:56)
[2018-06-26] MEDS: HYDROmorphone 2 MG/1 ML VIAL IV PRN ×4 (02:28→20:58)
[2018-06-26 06:10] LABS: Basophils % 0.1 % (0.0-0.8); Eosinophils # 0.2 10*3/uL (0.0-0.87); Eosinophils % 2.2 % (0.00-10.9); Hematocrit 26.2 VOL% (42.0-52.0); Hemoglobin 8.3 GM/DL (14.0-18.0); Immature Granulocytes % 0.8 %; Immature Granulocytes Absolute 0.08 #; Lymphocytes # 1.7 10*3/uL (1.4-4.0); Lymphocytes % 17.2 % (21.2-54.2); Mean Corpuscular HGB Conc 31.7 GM/DL (32-36); Mean Corpuscular Hemoglobin 29 PG (27-34); Mean Corpuscular Volume 91.9 FL (87-102); Mean Platelet Volume 9.7 FL (9.6-12.0); Monocytes # 0.9 10*3/uL (0.11-0.8); Neutrophils # 6.9 10*3/uL (1.4-7.4); Neutrophils % 70.7 % (38.7-73.9); Platelet Count 243 T/CUMM (130-400); Red Blood Count 2.85 MC/CUMM (3.8-5.5); Red Cell Distribution Width 14.7 % (9.3-17.3); White Blood Count 9.7 T/CUMM (4-12)
[2018-06-26 06:49] LABS: Alanine Aminotransferase 21 U/L (16-61); Albumin 2.4 G/DL (3.4-5.0); Alkaline Phosphatase 66 U/L (45-117); Aspartate Amino Transferase 18 U/L (0-37); Bilirubin,Indirect 0.6 MG/DL (0.0-1.0); Blood Urea Nitrogen 21 MG/DL (7-18); Calcium 8.8 MG/DL (8.5-10.1); Glucose 141 MG/DL (74-106); Osmolality,Calculated 281.5 MOS/KG (273-304); Potassium 4.3 MMOL/L (3.5-5.1); Sodium 139 MMOL/L (136-145); Total Protein 6.4 G/DL (6.4-8.3)
[2018-06-26 06:51] LABS: Troponin I 0.823 NG/ML (0.00-0.045)
[2018-06-26] MEDS: VICTOZA SUBCUT SCH (08:31)
[2018-06-26] MEDS: LUBIPROSTONE 24 MCG CAPSULE PO SCH ×2 (08:32→20:55)
[2018-06-26] MEDS: ISOSORBIDE MONONITRATE 60 MG TABLET PO SCH (08:32)
[2018-06-26] MEDS: PANTOPRAZOLE 40 MG TABLET PO SCH (08:32)
[2018-06-26] MEDS: LORATADINE 10 MG TABLET PO SCH (08:32)
[2018-06-26] MEDS: ASPIRIN EC 325 MG TABLET PO SCH (08:32)
[2018-06-26] MEDS: METOPROLOL SUCCINATE XL 50 MG TABLET PO SCH (08:32)
[2018-06-26] MEDS: FERROUS SULFATE 325 MG TABLET PO SCH (08:32)
[2018-06-26] MEDS: amLODIPine 10 MG TABLET PO SCH (08:32)
[2018-06-26] MEDS: DOCUSATE SODIUM 100 MG CAPSULE PO SCH (08:32)
[2018-06-26] MEDS: INSULIN REGULAR 100 UNIT/ML SUBCUT SCH ×4 (08:33→21:03)
[2018-06-26] MEDS: INSULIN GLARGINE 100 UNIT/ML SUBCUT SCH ×2 (08:41→20:55)
[2018-06-26] MEDS: CHLORHEXIDINE 0.12% ORAL RINSE 60 ML BOTTLE SWISH/SPIT SCH ×2 (08:41→21:03)
[2018-06-26] MEDS: TERAZOSIN 1 MG CAPSULE PO SCH (20:55)
[2018-06-27] MEDS: HYDROmorphone 2 MG/1 ML VIAL IV PRN ×4 (01:05→22:14)
[2018-06-27] MEDS: ALBUTEROL/IPRATROPIUM 3 ML NEB RESP TX SCH ×4 (01:55→20:03)
[2018-06-27 04:12] LABS: Basophils % 0.1 % (0.0-0.8); Eosinophils # 0.2 10*3/uL (0.0-0.87); Eosinophils % 2.4 % (0.00-10.9); Hematocrit 23.9 VOL% (42.0-52.0); Hemoglobin 7.6 GM/DL (14.0-18.0); Immature Granulocytes % 0.7 %; Immature Granulocytes Absolute 0.06 #; Lymphocytes # 1.4 10*3/uL (1.4-4.0); Lymphocytes % 17.2 % (21.2-54.2); Mean Corpuscular HGB Conc 31.8 GM/DL (32-36); Mean Corpuscular Hemoglobin 29 PG (27-34); Mean Corpuscular Volume 90.5 FL (87-102); Mean Platelet Volume 8.8 FL (9.6-12.0); Monocytes # 0.7 10*3/uL (0.11-0.8); Monocytes % 8.9 % (1.7-12.7); Neutrophils # 5.9 10*3/uL (1.4-7.4); Neutrophils % 70.7 % (38.7-73.9); Platelet Count 228 T/CUMM (130-400); Red Blood Count 2.64 MC/CUMM (3.8-5.5); Red Cell Distribution Width 14.8 % (9.3-17.3); White Blood Count 8.3 T/CUMM (4-12)
[2018-06-27 04:38] LABS: Alanine Aminotransferase 18 U/L (16-61); Albumin 2.3 G/DL (3.4-5.0); Alkaline Phosphatase 63 U/L (45-117); Aspartate Amino Transferase 14 U/L (0-37); Bilirubin,Indirect 0.7 MG/DL (0.0-1.0); Blood Urea Nitrogen 16 MG/DL (7-18); Calcium 8.4 MG/DL (8.5-10.1); Glucose 59 MG/DL (74-106); Osmolality,Calculated 279.3 MOS/KG (273-304); Potassium 3.9 MMOL/L (3.5-5.1); Sodium 141 MMOL/L (136-145); Total Protein 6.2 G/DL (6.4-8.3)
[2018-06-27] MEDS: LUBIPROSTONE 24 MCG CAPSULE PO SCH ×2 (08:48→22:13)
[2018-06-27] MEDS: ISOSORBIDE MONONITRATE 60 MG TABLET PO SCH (08:48)
[2018-06-27] MEDS: LORATADINE 10 MG TABLET PO SCH (08:49)
[2018-06-27] MEDS: ASPIRIN EC 325 MG TABLET PO SCH (08:49)
[2018-06-27] MEDS: DOCUSATE SODIUM 100 MG CAPSULE PO SCH (08:49)
[2018-06-27] MEDS: amLODIPine 10 MG TABLET PO SCH (08:49)
[2018-06-27] MEDS: PANTOPRAZOLE 40 MG TABLET PO SCH (08:49)
[2018-06-27] MEDS: METOPROLOL SUCCINATE XL 50 MG TABLET PO SCH (08:49)
[2018-06-27] MEDS: FERROUS SULFATE 325 MG TABLET PO SCH (08:49)
[2018-06-27] MEDS: INSULIN GLARGINE 100 UNIT/ML SUBCUT SCH ×2 (08:50→22:13)
[2018-06-27] MEDS: INSULIN REGULAR 100 UNIT/ML SUBCUT SCH ×4 (08:52→22:10)
[2018-06-27] MEDS ORDERED: SODIUM CHLORIDE 0.9% 1,000 ML IV PRN ×2 (09:24→09:42)
[2018-06-27] MEDS: VICTOZA SUBCUT SCH (09:40)
[2018-06-27] MEDS: CHLORHEXIDINE 0.12% ORAL RINSE 60 ML BOTTLE SWISH/SPIT SCH ×2 (09:41→22:10)
[2018-06-27] MEDS ORDERED: FUROSEMIDE 40 MG/4 ML VIAL IV ONE (09:43)
[2018-06-27 20:49] LABS: Hematocrit 32.6 VOL% (42.0-52.0); Hemoglobin 10.6 GM/DL (14.0-18.0)
[2018-06-27] MEDS: TERAZOSIN 1 MG CAPSULE PO SCH (22:15)
[2018-06-28] MEDS: ALBUTEROL/IPRATROPIUM 3 ML NEB RESP TX SCH ×4 (01:30→19:58)
[2018-06-28 05:28] LABS: Basophils % 0.1 % (0.0-0.8); Eosinophils # 0.3 10*3/uL (0.0-0.87); Eosinophils % 3.1 % (0.00-10.9); Hematocrit 30.3 VOL% (42.0-52.0); Hemoglobin 9.9 GM/DL (14.0-18.0); Immature Granulocytes % 0.9 %; Immature Granulocytes Absolute 0.08 #; Lymphocytes # 1.6 10*3/uL (1.4-4.0); Mean Corpuscular HGB Conc 32.7 GM/DL (32-36); Mean Corpuscular Hemoglobin 30 PG (27-34); Mean Corpuscular Volume 90.4 FL (87-102); Mean Platelet Volume 8.8 FL (9.6-12.0); Monocytes # 0.8 10*3/uL (0.11-0.8); Monocytes % 9.2 % (1.7-12.7); Neutrophils % 68.7 % (38.7-73.9); Platelet Count 231 T/CUMM (130-400); Red Blood Count 3.35 MC/CUMM (3.8-5.5); Red Cell Distribution Width 14.5 % (9.3-17.3); White Blood Count 8.7 T/CUMM (4-12)
[2018-06-28] MEDS: HYDROmorphone 2 MG/1 ML VIAL IV PRN (06:45)
[2018-06-28] MEDS: INSULIN REGULAR 100 UNIT/ML SUBCUT SCH ×4 (08:08→20:40)
[2018-06-28] MEDS: FERROUS SULFATE 325 MG TABLET PO SCH (09:14)
[2018-06-28] MEDS: amLODIPine 10 MG TABLET PO SCH (09:14)
[2018-06-28] MEDS: VICTOZA SUBCUT SCH (09:14)
[2018-06-28] MEDS: LUBIPROSTONE 24 MCG CAPSULE PO SCH ×2 (09:14→20:40)
[2018-06-28] MEDS: DOCUSATE SODIUM 100 MG CAPSULE PO SCH (09:15)
[2018-06-28] MEDS: ASPIRIN EC 325 MG TABLET PO SCH (09:15)
[2018-06-28] MEDS: METOPROLOL SUCCINATE XL 50 MG TABLET PO SCH (09:15)
[2018-06-28] MEDS: ISOSORBIDE MONONITRATE 60 MG TABLET PO SCH (09:21)
[2018-06-28] MEDS: INSULIN GLARGINE 100 UNIT/ML SUBCUT SCH ×2 (09:21→20:40)
[2018-06-28] MEDS: PANTOPRAZOLE 40 MG TABLET PO SCH (09:22)
[2018-06-28] MEDS: CHLORHEXIDINE 0.12% ORAL RINSE 60 ML BOTTLE SWISH/SPIT SCH ×2 (09:22→20:40)
[2018-06-28] MEDS: LORATADINE 10 MG TABLET PO SCH (09:25)
[2018-06-28] MEDS: LACTULOSE 20 GM/30 ML UDCUP PO PRN (09:28)
[2018-06-28] MEDS ORDERED: HYDROmorphone 2 MG TABLET PO PRN (09:40)
[2018-06-28] MEDS: ONDANSETRON 4 MG/2 ML VIAL IV PRN (13:53)
[2018-06-28] MEDS: HYDROmorphone 2 MG TABLET PO PRN (15:21)
[2018-06-28] MEDS: TERAZOSIN 1 MG CAPSULE PO SCH (20:40)
[2018-06-29] MEDS: ALBUTEROL/IPRATROPIUM 3 ML NEB RESP TX SCH ×4 (00:32→20:29)
[2018-06-29] MEDS: HYDROmorphone 2 MG TABLET PO PRN ×3 (03:22→15:04)
[2018-06-29] MEDS: CHLORHEXIDINE 0.12% ORAL RINSE 60 ML BOTTLE SWISH/SPIT SCH ×2 (07:40→09:32)
[2018-06-29] MEDS: METOPROLOL SUCCINATE XL 50 MG TABLET PO SCH (09:30)
[2018-06-29] MEDS: ASPIRIN EC 325 MG TABLET PO SCH (09:30)
[2018-06-29] MEDS: VICTOZA SUBCUT SCH (09:30)
[2018-06-29] MEDS: LUBIPROSTONE 24 MCG CAPSULE PO SCH ×2 (09:30→21:44)
[2018-06-29] MEDS: LORATADINE 10 MG TABLET PO SCH (09:31)
[2018-06-29] MEDS: PANTOPRAZOLE 40 MG TABLET PO SCH (09:31)
[2018-06-29] MEDS: DOCUSATE SODIUM 100 MG CAPSULE PO SCH (09:31)
[2018-06-29] MEDS: ISOSORBIDE MONONITRATE 60 MG TABLET PO SCH (09:31)
[2018-06-29] MEDS: amLODIPine 10 MG TABLET PO SCH (09:31)
[2018-06-29] MEDS: FERROUS SULFATE 325 MG TABLET PO SCH (09:31)
[2018-06-29] MEDS: INSULIN REGULAR 100 UNIT/ML SUBCUT SCH ×4 (09:32→21:44)
[2018-06-29] MEDS: INSULIN GLARGINE 100 UNIT/ML SUBCUT SCH ×2 (09:42→21:44)
[2018-06-29] MEDS: ONDANSETRON 4 MG/2 ML VIAL IV PRN (12:54)
[2018-06-29] MEDS: LACTULOSE 20 GM/30 ML UDCUP PO PRN (15:03)
[2018-06-29] MEDS: METOCLOPRAMIDE 10 MG/2 ML VIAL IV SCH (17:58)
[2018-06-29] MEDS: TERAZOSIN 1 MG CAPSULE PO SCH (21:44)
[2018-06-30] MEDS: ALBUTEROL/IPRATROPIUM 3 ML NEB RESP TX SCH ×4 (00:34→20:00)
[2018-06-30] MEDS: METOCLOPRAMIDE 10 MG/2 ML VIAL IV SCH ×4 (02:16→17:04)
[2018-06-30] MEDS: HYDROmorphone 2 MG TABLET PO PRN (06:40)
[2018-06-30] MEDS: INSULIN REGULAR 100 UNIT/ML SUBCUT SCH ×3 (07:52→17:04)
[2018-06-30] MEDS: VICTOZA SUBCUT SCH (08:52)
[2018-06-30] MEDS: DOCUSATE SODIUM 100 MG CAPSULE PO SCH (08:53)
[2018-06-30] MEDS: amLODIPine 10 MG TABLET PO SCH (08:53)
[2018-06-30] MEDS: PANTOPRAZOLE 40 MG TABLET PO SCH (08:53)
[2018-06-30] MEDS: ISOSORBIDE MONONITRATE 60 MG TABLET PO SCH (08:53)
[2018-06-30] MEDS: LUBIPROSTONE 24 MCG CAPSULE PO SCH ×2 (08:53→21:27)
[2018-06-30] MEDS: ASPIRIN EC 325 MG TABLET PO SCH (08:53)
[2018-06-30] MEDS: METOPROLOL SUCCINATE XL 50 MG TABLET PO SCH (08:53)
[2018-06-30] MEDS: LORATADINE 10 MG TABLET PO SCH (08:54)
[2018-06-30] MEDS: INSULIN GLARGINE 100 UNIT/ML SUBCUT SCH ×2 (08:55→21:27)
[2018-06-30] MEDS: CHLORHEXIDINE 0.12% ORAL RINSE 60 ML BOTTLE SWISH/SPIT SCH (08:55)
[2018-06-30] MEDS: ACETAMINOPHEN 325 MG TABLET PO PRN (17:10)
[2018-06-30] MEDS: TERAZOSIN 1 MG CAPSULE PO SCH (21:28)
[2018-07-01] MEDS: ALBUTEROL/IPRATROPIUM 3 ML NEB RESP TX SCH ×4 (01:07→19:18)
[2018-07-01] MEDS: CHLORHEXIDINE 0.12% ORAL RINSE 60 ML BOTTLE SWISH/SPIT SCH ×2 (05:25→08:56)
[2018-07-01] MEDS: METOCLOPRAMIDE 10 MG/2 ML VIAL IV SCH ×4 (05:25→17:59)
[2018-07-01] MEDS: INSULIN REGULAR 100 UNIT/ML SUBCUT SCH ×5 (05:25→20:45)
[2018-07-01] MEDS: VICTOZA SUBCUT SCH (08:50)
[2018-07-01] MEDS: INSULIN GLARGINE 100 UNIT/ML SUBCUT SCH (08:52)
[2018-07-01] MEDS: ISOSORBIDE MONONITRATE 60 MG TABLET PO SCH (08:53)
[2018-07-01] MEDS: LUBIPROSTONE 24 MCG CAPSULE PO SCH ×2 (08:53→09:05)
[2018-07-01] MEDS: METOPROLOL SUCCINATE XL 50 MG TABLET PO SCH (08:53)
[2018-07-01] MEDS: LORATADINE 10 MG TABLET PO SCH (08:53)
[2018-07-01] MEDS: DOCUSATE SODIUM 100 MG CAPSULE PO SCH (08:54)
[2018-07-01] MEDS: PANTOPRAZOLE 40 MG TABLET PO SCH (08:54)
[2018-07-01] MEDS: ASPIRIN EC 325 MG TABLET PO SCH (08:54)
[2018-07-01] MEDS: amLODIPine 10 MG TABLET PO SCH (08:54)
[2018-07-01] MEDS: TERAZOSIN 1 MG CAPSULE PO SCH (09:08)
[2018-07-01] MEDS: ACETAMINOPHEN 325 MG TABLET PO PRN (13:54)
[2018-07-01] MEDS ORDERED: HYDROmorphone 2 MG/1 ML VIAL IV ONE (16:13)
[2018-07-01] MEDS ORDERED: HYDROmorphone 2 MG/1 ML VIAL ONE (16:15)
[2018-07-01 17:22] LABS: Hematocrit 31.6 VOL% (42.0-52.0); Hemoglobin 10.1 GM/DL (14.0-18.0)
[2018-07-02] MEDS: INSULIN GLARGINE 100 UNIT/ML SUBCUT SCH ×3 (00:03→21:07)
[2018-07-02] MEDS: CHLORHEXIDINE 0.12% ORAL RINSE 60 ML BOTTLE SWISH/SPIT SCH ×2 (00:04→08:36)
[2018-07-02] MEDS: METOCLOPRAMIDE 10 MG/2 ML VIAL IV SCH ×4 (00:05→17:57)
[2018-07-02] MEDS: ALBUTEROL/IPRATROPIUM 3 ML NEB RESP TX SCH ×4 (00:25→19:52)
[2018-07-02] MEDS: INSULIN REGULAR 100 UNIT/ML SUBCUT SCH ×4 (08:34→21:18)
[2018-07-02] MEDS: ASPIRIN EC 325 MG TABLET PO SCH (08:35)
[2018-07-02] MEDS: METOPROLOL SUCCINATE XL 50 MG TABLET PO SCH (08:35)
[2018-07-02] MEDS: LORATADINE 10 MG TABLET PO SCH (08:35)
[2018-07-02] MEDS: PANTOPRAZOLE 40 MG TABLET PO SCH (08:36)
[2018-07-02] MEDS: LUBIPROSTONE 24 MCG CAPSULE PO SCH ×2 (08:36→21:08)
[2018-07-02] MEDS: ISOSORBIDE MONONITRATE 60 MG TABLET PO SCH (08:36)
[2018-07-02] MEDS: VICTOZA SUBCUT SCH (08:36)
[2018-07-02] MEDS: amLODIPine 10 MG TABLET PO SCH (08:36)
[2018-07-02] MEDS: DOCUSATE SODIUM 100 MG CAPSULE PO SCH (08:36)
[2018-07-02] MEDS: TERAZOSIN 1 MG CAPSULE PO SCH (21:06)
[2018-07-02] MEDS: HYDROmorphone 2 MG TABLET PO PRN (21:09)
[2018-07-03] MEDS: CHLORHEXIDINE 0.12% ORAL RINSE 60 ML BOTTLE SWISH/SPIT SCH ×2 (00:17→09:43)
[2018-07-03] MEDS: METOCLOPRAMIDE 10 MG/2 ML VIAL IV SCH ×3 (00:19→12:22)
[2018-07-03] MEDS: ALBUTEROL/IPRATROPIUM 3 ML NEB RESP TX SCH ×3 (00:53→13:50)
[2018-07-03] MEDS: INSULIN REGULAR 100 UNIT/ML SUBCUT SCH ×2 (09:40→12:21)
[2018-07-03] MEDS: ASPIRIN EC 325 MG TABLET PO SCH (09:42)
[2018-07-03] MEDS: PANTOPRAZOLE 40 MG TABLET PO SCH (09:42)
[2018-07-03] MEDS: LUBIPROSTONE 24 MCG CAPSULE PO SCH (09:42)
[2018-07-03] MEDS: DOCUSATE SODIUM 100 MG CAPSULE PO SCH (09:42)
[2018-07-03] MEDS: METOPROLOL SUCCINATE XL 50 MG TABLET PO SCH (09:42)
[2018-07-03] MEDS: VICTOZA SUBCUT SCH (09:42)
[2018-07-03] MEDS: LORATADINE 10 MG TABLET PO SCH (09:42)
[2018-07-03] MEDS: ISOSORBIDE MONONITRATE 60 MG TABLET PO SCH (09:42)
[2018-07-03] MEDS: LACTULOSE 20 GM/30 ML UDCUP PO PRN (09:43)
[2018-07-03] MEDS: HYDROmorphone 2 MG TABLET PO PRN (09:58)
[2018-07-03] MEDS: amLODIPine 10 MG TABLET PO SCH (09:58)
[2018-07-03] MEDS: INSULIN GLARGINE 100 UNIT/ML SUBCUT SCH (10:00)
[2018-07-03] MEDS ORDERED: INFLUENZA VIRUS VACCINE 0.5 ML SYRINGE IM ONE (12:22)
[2018-07-03 12:35] VITALS: BP 107/55
== END 2018-07-03 15:25 | disposition home health service (06) | DRG 236 ==
LOC: N.TELES 10:32 → N.CVR 06-18 07:07 → N.ICU 06-19 15:11 → N.TELES 06-22 10:44

== ENCOUNTER 2018-07-11 13:08 | Inpatient (IN) ==
[2018-07-11 14:40] LABS: Basophils % 0.4 % (0.0-0.8); Eosinophils # 0.5 10*3/uL (0.0-0.87); Eosinophils % 6.3 % (0.00-10.9); Hematocrit 35.4 VOL% (42.0-52.0); Hemoglobin 11.5 GM/DL (14.0-18.0); Immature Granulocytes % 0.5 %; Immature Granulocytes Absolute 0.04 #; Lymphocytes # 1.6 10*3/uL (1.4-4.0); Lymphocytes % 19.6 % (21.2-54.2); Mean Corpuscular HGB Conc 32.5 GM/DL (32-36); Mean Corpuscular Hemoglobin 29 PG (27-34); Mean Corpuscular Volume 87.8 FL (87-102); Monocytes # 0.7 10*3/uL (0.11-0.8); Monocytes % 8.7 % (1.7-12.7); Neutrophils # 5.4 10*3/uL (1.4-7.4); Neutrophils % 64.5 % (38.7-73.9); Platelet Count 187 T/CUMM (130-400); Red Blood Count 4.03 MC/CUMM (3.8-5.5); Red Cell Distribution Width 13.9 % (9.3-17.3); White Blood Count 8.3 T/CUMM (4-12)
[2018-07-11 14:48] LABS: INR 1.1; PT Patient Result 11.6 SECS
[2018-07-11 15:12] LABS: Bilirubin,Total 0.7 MG/DL (0.2-1.0); Calcium 8.5 MG/DL (8.5-10.1); Osmolality,Calculated 279.5 MOS/KG (273-304); Total Protein 7.3 G/DL (6.4-8.3)
[2018-07-11] MEDS ORDERED: FUROSEMIDE 40 MG/4 ML VIAL IV STA (15:55)
[2018-07-11] MEDS ORDERED: ALBUTEROL/IPRATROPIUM 3 ML NEB RESP TX PRN (17:06)
[2018-07-11 17:33] LABS: Apearance,Urine CLEAR (Clear); Bilirubin,Urine Negative (Negative); Blood, Urine Negative (Negative); Glucose,Urine (UA) Negative (Negative); Ketones,Urine Negative (Negative); Mucus,Urine Occasional /LPF (Occasional); Nitrite,Urine Negative (Negative); Protein,Urine Negative; RBC,Urine 1 /HPF (0-4); Urine Color Yellow (Yellow); Urine Specific Gravity 1.009 (1.001-1.035); Urine Urobilinogen < 2.0 EU/DL (0.2-1.0); WBC,Urine <1 /HPF (0-6)
[2018-07-11] MEDS ORDERED: cefTRIAXone 1,000 MG VIAL ONE (18:10)
[2018-07-11] MEDS ORDERED: SODIUM CHLORIDE 0.9% 100 ML IV ONE (18:11)
[2018-07-11] MEDS: cefTRIAXone 1,000 MG in SYRINGE 1 EACH IV SCH (18:15)
[2018-07-11] MEDS: FAMOTIDINE 20 MG TABLET PO SCH (20:48)
[2018-07-11] MEDS: TERAZOSIN 1 MG CAPSULE PO SCH (20:48)
[2018-07-11] MEDS: INSULIN GLARGINE 100 UNIT/ML SUBCUT SCH (20:48)
[2018-07-11] MEDS: DOCUSATE SODIUM 100 MG CAPSULE PO SCH (20:48)
[2018-07-11] MEDS: PANTOPRAZOLE 40 MG TABLET PO SCH (20:48)
[2018-07-11] MEDS ORDERED: NON-FORMULARY MEDICATION (Omeprazole [Prilosec] 20 MG) PO SCH (21:00)
[2018-07-12] MEDS: cefTRIAXone 1,000 MG in SYRINGE 1 EACH IV SCH ×2 (07:43→17:09)
[2018-07-12] MEDS ORDERED: Liraglutide [Victoza 2-Pak] 0.6 MG SQ SCH (08:00)
[2018-07-12] MEDS: INSULIN GLARGINE 100 UNIT/ML SUBCUT SCH ×2 (09:43→20:04)
[2018-07-12] MEDS: LORATADINE 10 MG TABLET PO SCH (09:44)
[2018-07-12] MEDS: DOCUSATE SODIUM 100 MG CAPSULE PO SCH ×2 (09:44→20:04)
[2018-07-12] MEDS: hydroCHLOROthiazide 12.5 MG CAPSULE PO SCH (09:44)
[2018-07-12] MEDS: ISOSORBIDE MONONITRATE 60 MG TABLET PO SCH (09:44)
[2018-07-12] MEDS: amLODIPine 10 MG TABLET PO SCH (09:44)
[2018-07-12] MEDS: METOPROLOL SUCCINATE XL 50 MG TABLET PO SCH (09:45)
[2018-07-12] MEDS: ASPIRIN CHEW 81 MG TABLET PO SCH (09:45)
[2018-07-12] MEDS: PANTOPRAZOLE 40 MG TABLET PO SCH ×2 (09:45→20:04)
[2018-07-12] MEDS: FAMOTIDINE 20 MG TABLET PO SCH ×2 (09:46→22:33)
[2018-07-12] MEDS: ACETAMINOPHEN 325 MG TABLET PO PRN (13:49)
[2018-07-12] MEDS: ALBUTEROL/IPRATROPIUM 3 ML NEB RESP TX SCH ×2 (13:51→19:51)
[2018-07-12] MEDS: TERAZOSIN 1 MG CAPSULE PO SCH (20:04)
[2018-07-13] MEDS: ALBUTEROL/IPRATROPIUM 3 ML NEB RESP TX SCH ×4 (00:35→19:35)
[2018-07-13] MEDS: cefTRIAXone 1,000 MG in SYRINGE 1 EACH IV SCH ×2 (05:42→17:45)
[2018-07-13] MEDS: DOCUSATE SODIUM 100 MG CAPSULE PO SCH ×2 (08:38→20:38)
[2018-07-13] MEDS: LORATADINE 10 MG TABLET PO SCH (08:38)
[2018-07-13] MEDS: amLODIPine 10 MG TABLET PO SCH (08:38)
[2018-07-13] MEDS: hydroCHLOROthiazide 12.5 MG CAPSULE PO SCH (08:38)
[2018-07-13] MEDS: PANTOPRAZOLE 40 MG TABLET PO SCH ×2 (08:38→20:39)
[2018-07-13] MEDS: ISOSORBIDE MONONITRATE 60 MG TABLET PO SCH (08:38)
[2018-07-13] MEDS: METOPROLOL SUCCINATE XL 50 MG TABLET PO SCH (08:38)
[2018-07-13] MEDS: ATORVASTATIN 80 MG TABLET PO SCH (08:39)
[2018-07-13] MEDS: ACETAMINOPHEN 325 MG TABLET PO PRN ×2 (08:39→17:45)
[2018-07-13] MEDS: ASPIRIN CHEW 81 MG TABLET PO SCH (08:40)
[2018-07-13] MEDS: FAMOTIDINE 20 MG TABLET PO SCH ×2 (08:41→20:38)
[2018-07-13] MEDS: INSULIN GLARGINE 100 UNIT/ML SUBCUT SCH ×3 (08:43→20:38)
[2018-07-13] MEDS: TERAZOSIN 1 MG CAPSULE PO SCH (20:38)
[2018-07-14] MEDS: ALBUTEROL/IPRATROPIUM 3 ML NEB RESP TX SCH ×4 (01:30→19:49)
[2018-07-14] MEDS: cefTRIAXone 1,000 MG in SYRINGE 1 EACH IV SCH ×2 (06:19→17:37)
[2018-07-14] MEDS: ACETAMINOPHEN 325 MG TABLET PO PRN (06:37)
[2018-07-14] MEDS: ISOSORBIDE MONONITRATE 60 MG TABLET PO SCH (08:51)
[2018-07-14] MEDS: FAMOTIDINE 20 MG TABLET PO SCH ×2 (08:51→22:26)
[2018-07-14] MEDS: DOCUSATE SODIUM 100 MG CAPSULE PO SCH ×2 (08:52→22:26)
[2018-07-14] MEDS: METOPROLOL SUCCINATE XL 50 MG TABLET PO SCH (08:52)
[2018-07-14] MEDS: PANTOPRAZOLE 40 MG TABLET PO SCH ×2 (08:52→22:26)
[2018-07-14] MEDS: amLODIPine 10 MG TABLET PO SCH (08:52)
[2018-07-14] MEDS: ASPIRIN CHEW 81 MG TABLET PO SCH (08:52)
[2018-07-14] MEDS: LORATADINE 10 MG TABLET PO SCH (08:52)
[2018-07-14] MEDS: hydroCHLOROthiazide 12.5 MG CAPSULE PO SCH (08:52)
[2018-07-14] MEDS: INSULIN GLARGINE 100 UNIT/ML SUBCUT SCH ×2 (08:53→22:26)
[2018-07-14] MEDS: methylPREDNISolone SOD SUC 40 MG/1 ML VIAL IV SCH ×2 (13:49→22:27)
[2018-07-14] MEDS: TERAZOSIN 1 MG CAPSULE PO SCH (22:26)
[2018-07-15] MEDS: ALBUTEROL/IPRATROPIUM 3 ML NEB RESP TX SCH ×4 (00:32→19:02)
[2018-07-15] MEDS: methylPREDNISolone SOD SUC 40 MG/1 ML VIAL IV SCH ×3 (05:58→21:20)
[2018-07-15] MEDS: cefTRIAXone 1,000 MG in SYRINGE 1 EACH IV SCH ×2 (05:59→18:00)
[2018-07-15] MEDS: ACETAMINOPHEN 325 MG TABLET PO PRN ×2 (06:07→21:15)
[2018-07-15] MEDS: INSULIN GLARGINE 100 UNIT/ML SUBCUT SCH ×2 (08:31→21:13)
[2018-07-15] MEDS: amLODIPine 10 MG TABLET PO SCH (08:31)
[2018-07-15] MEDS: ATORVASTATIN 80 MG TABLET PO SCH (08:31)
[2018-07-15] MEDS: METOPROLOL SUCCINATE XL 50 MG TABLET PO SCH (08:31)
[2018-07-15] MEDS: DOCUSATE SODIUM 100 MG CAPSULE PO SCH ×2 (08:31→21:15)
[2018-07-15] MEDS: ISOSORBIDE MONONITRATE 60 MG TABLET PO SCH (08:31)
[2018-07-15] MEDS: hydroCHLOROthiazide 12.5 MG CAPSULE PO SCH (08:32)
[2018-07-15] MEDS: PANTOPRAZOLE 40 MG TABLET PO SCH ×2 (08:32→21:15)
[2018-07-15] MEDS: FAMOTIDINE 20 MG TABLET PO SCH ×2 (08:32→21:15)
[2018-07-15] MEDS: ASPIRIN CHEW 81 MG TABLET PO SCH (08:32)
[2018-07-15] MEDS: LORATADINE 10 MG TABLET PO SCH (08:32)
[2018-07-15] MEDS: TERAZOSIN 1 MG CAPSULE PO SCH (21:15)
[2018-07-16] MEDS: ALBUTEROL/IPRATROPIUM 3 ML NEB RESP TX SCH ×4 (00:21→19:56)
[2018-07-16] MEDS: methylPREDNISolone SOD SUC 40 MG/1 ML VIAL IV SCH (04:49)
[2018-07-16] MEDS: cefTRIAXone 1,000 MG in SYRINGE 1 EACH IV SCH (05:53)
[2018-07-16] MEDS: METOPROLOL SUCCINATE XL 50 MG TABLET PO SCH (08:57)
[2018-07-16] MEDS: LORATADINE 10 MG TABLET PO SCH (08:57)
[2018-07-16] MEDS: amLODIPine 10 MG TABLET PO SCH (08:57)
[2018-07-16] MEDS: FAMOTIDINE 20 MG TABLET PO SCH ×2 (08:57→20:02)
[2018-07-16] MEDS: DOCUSATE SODIUM 100 MG CAPSULE PO SCH ×2 (08:58→20:02)
[2018-07-16] MEDS: ISOSORBIDE MONONITRATE 60 MG TABLET PO SCH (08:58)
[2018-07-16] MEDS: PANTOPRAZOLE 40 MG TABLET PO SCH ×2 (08:58→20:02)
[2018-07-16] MEDS: hydroCHLOROthiazide 12.5 MG CAPSULE PO SCH (08:58)
[2018-07-16] MEDS: ASPIRIN CHEW 81 MG TABLET PO SCH (08:58)
[2018-07-16] MEDS: INSULIN GLARGINE 100 UNIT/ML SUBCUT SCH ×2 (08:58→20:02)
[2018-07-16] MEDS ORDERED: HYDROmorphone 2 MG/1 ML VIAL IV ONE (09:30)
[2018-07-16] MEDS: predniSONE 10 MG TABLET PO SCH ×2 (09:47→20:02)
[2018-07-16] MEDS: LEVOFLOXACIN 500 MG TABLET PO SCH (09:48)
[2018-07-16] MEDS: TERAZOSIN 1 MG CAPSULE PO SCH (20:02)
[2018-07-17] MEDS: ALBUTEROL/IPRATROPIUM 3 ML NEB RESP TX SCH ×4 (00:02→19:19)
[2018-07-17] MEDS: LEVOFLOXACIN 500 MG TABLET PO SCH ×2 (08:10→11:09)
[2018-07-17] MEDS: ATORVASTATIN 80 MG TABLET PO SCH (08:10)
[2018-07-17] MEDS: hydroCHLOROthiazide 12.5 MG CAPSULE PO SCH (08:10)
[2018-07-17] MEDS: METOPROLOL SUCCINATE XL 50 MG TABLET PO SCH (08:10)
[2018-07-17] MEDS: LORATADINE 10 MG TABLET PO SCH (08:10)
[2018-07-17] MEDS: ISOSORBIDE MONONITRATE 60 MG TABLET PO SCH (08:10)
[2018-07-17] MEDS: predniSONE 10 MG TABLET PO SCH ×2 (08:11→21:08)
[2018-07-17] MEDS: ASPIRIN CHEW 81 MG TABLET PO SCH (08:11)
[2018-07-17] MEDS: PANTOPRAZOLE 40 MG TABLET PO SCH ×2 (08:11→21:08)
[2018-07-17] MEDS: INSULIN GLARGINE 100 UNIT/ML SUBCUT SCH ×2 (08:11→21:08)
[2018-07-17] MEDS: amLODIPine 10 MG TABLET PO SCH (08:11)
[2018-07-17] MEDS: FAMOTIDINE 20 MG TABLET PO SCH ×2 (08:11→21:06)
[2018-07-17] MEDS: DOCUSATE SODIUM 100 MG CAPSULE PO SCH ×2 (08:12→21:06)
[2018-07-17] MEDS: ACETAMINOPHEN 325 MG TABLET PO PRN ×2 (14:49→21:06)
[2018-07-17] MEDS: TERAZOSIN 1 MG CAPSULE PO SCH (21:08)
[2018-07-18] MEDS: ALBUTEROL/IPRATROPIUM 3 ML NEB RESP TX SCH ×4 (01:16→19:52)
[2018-07-18] MEDS: FAMOTIDINE 20 MG TABLET PO SCH ×2 (09:59→21:28)
[2018-07-18] MEDS: ASPIRIN CHEW 81 MG TABLET PO SCH (09:59)
[2018-07-18] MEDS: LORATADINE 10 MG TABLET PO SCH (09:59)
[2018-07-18] MEDS: PANTOPRAZOLE 40 MG TABLET PO SCH ×2 (09:59→21:28)
[2018-07-18] MEDS: hydroCHLOROthiazide 12.5 MG CAPSULE PO SCH (10:00)
[2018-07-18] MEDS: LEVOFLOXACIN 500 MG TABLET PO SCH (10:00)
[2018-07-18] MEDS: METOPROLOL SUCCINATE XL 50 MG TABLET PO SCH (10:00)
[2018-07-18] MEDS: amLODIPine 10 MG TABLET PO SCH (10:00)
[2018-07-18] MEDS: ISOSORBIDE MONONITRATE 60 MG TABLET PO SCH (10:00)
[2018-07-18] MEDS: INSULIN GLARGINE 100 UNIT/ML SUBCUT SCH ×2 (10:00→21:29)
[2018-07-18] MEDS: predniSONE 10 MG TABLET PO SCH ×2 (10:00→21:28)
[2018-07-18] MEDS: DOCUSATE SODIUM 100 MG CAPSULE PO SCH ×2 (10:00→21:26)
[2018-07-18] MEDS: ACETAMINOPHEN 325 MG TABLET PO PRN ×2 (10:03→21:27)
[2018-07-18] MEDS: LACTULOSE 20 GM/30 ML UDCUP PO PRN (11:18)
[2018-07-18] MEDS: ONDANSETRON 4 MG/2 ML VIAL IV PRN (15:26)
[2018-07-18] MEDS: TERAZOSIN 1 MG CAPSULE PO SCH (21:28)
[2018-07-18] MEDS: CYCLOBENZAPRINE 10 MG TABLET PO SCH (21:28)
[2018-07-19] MEDS: ALBUTEROL/IPRATROPIUM 3 ML NEB RESP TX SCH ×4 (01:35→19:53)
[2018-07-19] MEDS ORDERED: predniSONE 5 MG TABLET PO ONE (05:10)
[2018-07-19] MEDS: FAMOTIDINE 20 MG TABLET PO SCH ×2 (09:04→20:34)
[2018-07-19] MEDS: ATORVASTATIN 80 MG TABLET PO SCH (09:04)
[2018-07-19] MEDS: ASPIRIN CHEW 81 MG TABLET PO SCH (09:04)
[2018-07-19] MEDS: PANTOPRAZOLE 40 MG TABLET PO SCH ×2 (09:04→20:34)
[2018-07-19] MEDS: LORATADINE 10 MG TABLET PO SCH (09:04)
[2018-07-19] MEDS: DOCUSATE SODIUM 100 MG CAPSULE PO SCH ×2 (09:04→20:34)
[2018-07-19] MEDS: METOPROLOL SUCCINATE XL 50 MG TABLET PO SCH (09:04)
[2018-07-19] MEDS: LEVOFLOXACIN 500 MG TABLET PO SCH (09:05)
[2018-07-19] MEDS: INSULIN GLARGINE 100 UNIT/ML SUBCUT SCH ×2 (09:05→20:35)
[2018-07-19] MEDS: amLODIPine 10 MG TABLET PO SCH (12:50)
[2018-07-19] MEDS: ISOSORBIDE MONONITRATE 60 MG TABLET PO SCH (12:50)
[2018-07-19] MEDS: ACETAMINOPHEN 325 MG TABLET PO PRN (12:51)
[2018-07-19] MEDS: ONDANSETRON 4 MG/2 ML VIAL IV PRN (16:30)
[2018-07-19] MEDS: CYCLOBENZAPRINE 10 MG TABLET PO SCH (20:34)
[2018-07-19] MEDS: TERAZOSIN 1 MG CAPSULE PO SCH (20:34)
[2018-07-20] MEDS: ALBUTEROL/IPRATROPIUM 3 ML NEB RESP TX SCH ×4 (00:51→19:43)
[2018-07-20] MEDS: FAMOTIDINE 20 MG TABLET PO SCH ×2 (09:24→21:25)
[2018-07-20] MEDS: ISOSORBIDE MONONITRATE 60 MG TABLET PO SCH (09:24)
[2018-07-20] MEDS: METOPROLOL SUCCINATE XL 50 MG TABLET PO SCH (09:25)
[2018-07-20] MEDS: LEVOFLOXACIN 500 MG TABLET PO SCH (09:25)
[2018-07-20] MEDS: DOCUSATE SODIUM 100 MG CAPSULE PO SCH ×2 (09:25→21:26)
[2018-07-20] MEDS: PANTOPRAZOLE 40 MG TABLET PO SCH ×2 (09:25→21:25)
[2018-07-20] MEDS: amLODIPine 10 MG TABLET PO SCH (09:25)
[2018-07-20] MEDS: ASPIRIN CHEW 81 MG TABLET PO SCH (09:26)
[2018-07-20] MEDS: INSULIN GLARGINE 100 UNIT/ML SUBCUT SCH ×2 (09:26→23:05)
[2018-07-20] MEDS: LORATADINE 10 MG TABLET PO SCH (09:26)
[2018-07-20] MEDS: CYCLOBENZAPRINE 10 MG TABLET PO SCH (21:25)
[2018-07-20] MEDS: ONDANSETRON 4 MG/2 ML VIAL IV PRN (21:48)
[2018-07-20] MEDS: TERAZOSIN 1 MG CAPSULE PO SCH (21:54)
[2018-07-21] MEDS: ALBUTEROL/IPRATROPIUM 3 ML NEB RESP TX SCH ×4 (01:06→20:47)
[2018-07-21] MEDS: METOPROLOL SUCCINATE XL 50 MG TABLET PO SCH (09:09)
[2018-07-21] MEDS: LEVOFLOXACIN 500 MG TABLET PO SCH (09:09)
[2018-07-21] MEDS: FAMOTIDINE 20 MG TABLET PO SCH ×2 (09:09→22:06)
[2018-07-21] MEDS: ASPIRIN CHEW 81 MG TABLET PO SCH (09:10)
[2018-07-21] MEDS: ATORVASTATIN 80 MG TABLET PO SCH (09:10)
[2018-07-21] MEDS: DOCUSATE SODIUM 100 MG CAPSULE PO SCH ×2 (09:10→22:07)
[2018-07-21] MEDS: LORATADINE 10 MG TABLET PO SCH (09:10)
[2018-07-21] MEDS: PANTOPRAZOLE 40 MG TABLET PO SCH ×2 (09:10→22:06)
[2018-07-21] MEDS: amLODIPine 10 MG TABLET PO SCH (09:10)
[2018-07-21] MEDS: INSULIN GLARGINE 100 UNIT/ML SUBCUT SCH ×2 (09:15→22:07)
[2018-07-21] MEDS: ISOSORBIDE MONONITRATE 60 MG TABLET PO SCH (09:15)
[2018-07-21] MEDS: TERAZOSIN 1 MG CAPSULE PO SCH (22:06)
[2018-07-21] MEDS: CYCLOBENZAPRINE 10 MG TABLET PO SCH (22:07)
[2018-07-22] MEDS: ACETAMINOPHEN 325 MG TABLET PO PRN ×3 (00:23→21:39)
[2018-07-22] MEDS: ALBUTEROL/IPRATROPIUM 3 ML NEB RESP TX SCH ×4 (01:15→20:29)
[2018-07-22] MEDS: LACTULOSE 20 GM/30 ML UDCUP PO PRN (09:09)
[2018-07-22] MEDS: ASPIRIN CHEW 81 MG TABLET PO SCH (09:09)
[2018-07-22] MEDS: LORATADINE 10 MG TABLET PO SCH (09:09)
[2018-07-22] MEDS: DOCUSATE SODIUM 100 MG CAPSULE PO SCH ×2 (09:09→21:41)
[2018-07-22] MEDS: ISOSORBIDE MONONITRATE 60 MG TABLET PO SCH (09:09)
[2018-07-22] MEDS: PANTOPRAZOLE 40 MG TABLET PO SCH ×2 (09:09→21:41)
[2018-07-22] MEDS: INSULIN GLARGINE 100 UNIT/ML SUBCUT SCH ×2 (09:10→21:39)
[2018-07-22] MEDS: FAMOTIDINE 20 MG TABLET PO SCH ×2 (09:10→21:41)
[2018-07-22] MEDS: LEVOFLOXACIN 500 MG TABLET PO SCH (09:10)
[2018-07-22] MEDS: METOPROLOL SUCCINATE XL 50 MG TABLET PO SCH (09:10)
[2018-07-22] MEDS: amLODIPine 10 MG TABLET PO SCH (09:10)
[2018-07-22] MEDS: CYCLOBENZAPRINE 10 MG TABLET PO SCH (21:41)
[2018-07-22] MEDS: TERAZOSIN 1 MG CAPSULE PO SCH (21:41)
[2018-07-23] MEDS: ALBUTEROL/IPRATROPIUM 3 ML NEB RESP TX SCH ×2 (01:00→07:19)
[2018-07-23 08:07] VITALS: BP 99/57
[2018-07-23] MEDS: ISOSORBIDE MONONITRATE 60 MG TABLET PO SCH (08:49)
[2018-07-23] MEDS: ASPIRIN CHEW 81 MG TABLET PO SCH (08:50)
[2018-07-23] MEDS: METOPROLOL SUCCINATE XL 50 MG TABLET PO SCH (08:50)
[2018-07-23] MEDS: LEVOFLOXACIN 500 MG TABLET PO SCH ×2 (08:50→10:40)
[2018-07-23] MEDS: LORATADINE 10 MG TABLET PO SCH (08:50)
[2018-07-23] MEDS: PANTOPRAZOLE 40 MG TABLET PO SCH (08:50)
[2018-07-23] MEDS: INSULIN GLARGINE 100 UNIT/ML SUBCUT SCH (08:51)
[2018-07-23] MEDS: ATORVASTATIN 80 MG TABLET PO SCH (08:51)
[2018-07-23] MEDS: FAMOTIDINE 20 MG TABLET PO SCH (08:51)
[2018-07-23] MEDS: DOCUSATE SODIUM 100 MG CAPSULE PO SCH (08:51)
[2018-07-23] MEDS: amLODIPine 10 MG TABLET PO SCH (08:51)
[2018-07-23] MEDS: ACETAMINOPHEN 325 MG TABLET PO PRN (09:01)
== END 2018-07-23 10:53 | disposition swing bed (61) | DRG 194 ==
LOC: EDUNIT# → N.ED 13:08 → N.EDINP 17:06 → N.TELEN 18:21